=== PATIENT | female | born 1970 | race Caucasian/White ===

== ENCOUNTER 2024-12-17 17:46 | Emergency (ER) | payer OTHER ==
[~2024-12-17] VITALS: Ht 165.1 cm; Wt 111.1 kg
[~2024-12-17 17:46] MED LIST: FENOFIBRATE145 M1 PO; FLUOXETINE40 MG PO; FUROSEMIDE20 M1 PO; HALOPERIDOL5 MG PO; LEVOTHYROXINE125 MC1 PO; MELOXICAM15 MG PO; NEURONTIN300 MG PO; OMEPRAZOLE40 MG PO; PROZAC20 MG PO; SINGULAIR10 M1 PO; SOLIFENACIN SUC10 MG PO; VAZALORE81 MG PO; VITAMIN D350 MCG PO
[2024-12-17] MEDS ORDERED: SODIUM CHLORIDE 0.9% 1,000 ML IV ONE (17:50)
[2024-12-17] MEDS ORDERED: Metoclopramide Hydrochloride 10 MG/2 ML VIAL IV ONE (17:50)
[2024-12-17] MEDS ORDERED: diphenhydrAMINE hydrochloride 50 MG/ML VIAL IV ONE (17:50)
[2024-12-17 18:06] LABS: BASO # 0.0 10*3/uL (0.0-0.1); BASO % 0.2 % (0.0-1.0); EOS # 0.1 10*3/uL (0.0-0.4); EOS % 0.5 % (1.0-4.0); MEAN CELL VOLUME 92.4 fl (81.0-99.0); MEAN CORPUSCULAR HGB 29.3 pg (27.0-31.0); MEAN PLATELET VOLUME 11.1 fl (9.6-12.3); MONO # 1.3 10*3/uL (0.1-1.0); MONO % 7.4 % (3.0-9.0); NEUT # 13.9 10*3/uL (2.3-7.9); NEUT % 78.9 % (47.0-73.0); NUCLEATED RED BLOOD CELL 0.0 % (0.0-0.0); NUCLEATED RED BLOOD CELL 0.0 10*3/uL (0.0-0.0); PLATELET COUNT AUTOMATED 377 10*3/uL (130-400); RED CELL DISTRI WIDTH 13.9 % (0-14.5)
[2024-12-17 18:18] LABS: BILIRUBIN 1+ (Negative); BLOOD Negative (Negative); CLARITY Cloudy (Clear); COLOR Dark Yellow (Yellow); KETONE Trace (Negative); LEUKO ESTERASE Trace (Negative); NITRITE Negative (Negative); PH 6.5 (4.5-8.0); SPECIFIC GRAVITY 1.025 (1.001-1.030); UROBILINOGEN 1.0 E.U./dl (0.0-1.0)
[2024-12-17 18:26] LABS: BUN 8 mg/dl (9-23)
[2024-12-17 18:31] LABS: BACTERIA 2+; EPITHELIAL CELLS 16-20; MUCOUS 2+; RBC 0-2 rbc/hpf (0-2)
[2024-12-17] MEDS ORDERED: POTASSIUM CHLORIDE 20 MEQ TAB PO ONE (18:35)
[2024-12-17] MEDS ORDERED: Ondansetron4 MG PO (18:40)
[2024-12-17] MEDS ORDERED: POTASSIUM CHLO20 ME3 PO (18:40)
[2024-12-17] MEDS ORDERED: BENZONATATE100 M1 PO (18:40)
[2024-12-17] MEDS ORDERED: LEVOFLOXACIN750 M2 PO (18:40)
[2024-12-17] MEDS ORDERED: LEVOFLOXACIN 100 ML IV ONE (18:45)
== END 2024-12-17 19:54 | disposition home or self-care (01) ==
LOC: ED 17:46
PROVIDERS: Emergency Medicine
DX: J40 Bronchitis, not specified as acute or chronic (principal); R11.2 Nausea with vomiting, unspecified; R19.7 Diarrhea, unspecified; N39.0 Urinary tract infection, site not specified; E87.6 Hypokalemia; Z88.8 Allergy status to other drugs, medicaments and biological substances; Z91.018 Allergy to other foods

== ENCOUNTER 2024-12-26 21:24 | Inpatient (IN) | payer OTHER ==
[~2024-12-26] VITALS: Ht 165.1 cm; Wt 106.7 kg
[~2024-12-26 21:24] MED LIST changes: +BENZONATATE100 M1 PO; +LEVOFLOXACIN750 M2 PO; +Ondansetron4 MG PO; +POTASSIUM CHLO20 ME3 PO
[2024-12-26 21:36] VITALS: BP 134/90
[2024-12-26 22:02] LABS: BILIRUBIN 1+ (Negative); BLOOD Negative (Negative); CLARITY Cloudy (Clear); COLOR Dark Yellow (Yellow); KETONE 1+ (Negative); LEUKO ESTERASE 2+ (Negative); NITRITE Negative (Negative); PH 8.5 (4.5-8.0); SPECIFIC GRAVITY 1.025 (1.001-1.030); UROBILINOGEN 1.0 E.U./dl (0.0-1.0)
[2024-12-26 22:07] LABS: BACTERIA 1+; RBC 0-2 rbc/hpf (0-2); WBC 31-40 wbc/hpf (0-5)
[2024-12-26 22:08] LABS: BASO # 0.0 10*3/uL (0.0-0.1); BASO % 0.4 % (0.0-1.0); EOS # 0.2 10*3/uL (0.0-0.4); EOS % 2.0 % (1.0-4.0); MEAN CELL VOLUME 90.2 fl (81.0-99.0); MEAN CORPUSCULAR HGB 29.3 pg (27.0-31.0); MEAN PLATELET VOLUME 10.8 fl (9.6-12.3); MONO # 0.9 10*3/uL (0.1-1.0); MONO % 8.4 % (3.0-9.0); NEUT # 6.9 10*3/uL (2.3-7.9); NEUT % 61.5 % (47.0-73.0); NUCLEATED RED BLOOD CELL 0.0 % (0.0-0.0); NUCLEATED RED BLOOD CELL 0.0 10*3/uL (0.0-0.0); PLATELET COUNT AUTOMATED 490 10*3/uL (130-400); RED CELL DISTRI WIDTH 14.1 % (0-14.5)
[2024-12-26] MEDS ORDERED: Ondansetron Hydrochloride 4 MG TAB PO ONE (22:15)
[2024-12-26] MEDS ORDERED: SODIUM CHLORIDE 0.9% 1,000 ML IV ONE (22:15)
[2024-12-26 22:32] LABS: BUN 11.0 mg/dl (9-23); SGPT/ALT 26.0 U/L (5-49)
[2024-12-26] MEDS ORDERED: POTASSIUM CHLORIDE IN WATER 100 ML IV ONE (22:45)
[2024-12-27] MEDS ORDERED: SODIUM CHLORIDE 0.9% 1,000 ML IV ONE (01:05)
[2024-12-27] MEDS ORDERED: POTASSIUM CHLORIDE IN WATER 100 ML IV ONE (01:05)
[2024-12-27] MEDS ORDERED: ACETAMINOPHEN 650 MG SUPP R PRN (01:50)
[2024-12-27] MEDS ORDERED: ACETAMINOPHEN 325 MG TAB PO PRN (01:50)
[2024-12-27] MEDS ORDERED: Ondansetron Hydrochloride 4 MG/2 ML VIAL IV PRN (01:50)
[2024-12-27] MEDS ORDERED: BISACODYL 5 MG TAB PO PRN (01:50)
[2024-12-27] MEDS ORDERED: Acetaminophen/Hydrocodone 5 MG/325 MG TABLET PO PRN (01:50)
[2024-12-27] MEDS ORDERED: BISACODYL 10 MG SUPP R PRN (01:50)
[2024-12-27 02:40] VITALS: BP 128/74
[2024-12-27 03:15] VITALS: BP 122/78
[2024-12-27 06:32] LABS: ACT PARTIAL THROMBO TIME 25.4 SECONDS (20.0-32.1)
[2024-12-27 06:38] LABS: BASO # 0.0 10*3/uL (0.0-0.1); BASO % 0.4 % (0.0-1.0); EOS # 0.3 10*3/uL (0.0-0.4); EOS % 3.4 % (1.0-4.0); MEAN CORPUSCULAR HGB 28.8 pg (27.0-31.0); MEAN PLATELET VOLUME 11.2 fl (9.6-12.3); MONO # 0.7 10*3/uL (0.1-1.0); MONO % 7.6 % (3.0-9.0); NEUT # 6.0 10*3/uL (2.3-7.9); NEUT % 63.4 % (47.0-73.0); NUCLEATED RED BLOOD CELL 0.0 % (0.0-0.0); NUCLEATED RED BLOOD CELL 0.0 10*3/uL (0.0-0.0); PLATELET COUNT AUTOMATED 375 10*3/uL (130-400); RED CELL DISTRI WIDTH 14.2 % (0-14.5)
[2024-12-27] MEDS ORDERED: BENZONATATE 100 MG CAP PO PRN (06:45)
[2024-12-27 06:48] LABS: BUN 12 mg/dl (9-23); FREE T4 1.60 ng/dl (0.89-1.76); LDL CHOLESTEROL 47 mg/dL (9-159); SGPT/ALT 21 U/L (5-49)
[2024-12-27 07:07] LABS: MEAN CELL VOLUME 93.5 fl (81.0-99.0)
[2024-12-27 08:00] VITALS: BP 138/75
[2024-12-27 08:47] LABS: VITAMIN D, 25-HYDROXY 40.4 ng/mL (30-100)
[2024-12-27] MEDS ORDERED: GABAPENTIN 300 MG CAP PO SCH (10:00)
[2024-12-27] MEDS ORDERED: ASPIRIN ENTERIC COATED 81 MG TAB PO SCH (10:00)
[2024-12-27] MEDS ORDERED: HALOPERIDOL 5 MG TAB PO SCH (10:00)
[2024-12-27] MEDS ORDERED: FUROSEMIDE 20 MG TAB PO SCH (10:00)
[2024-12-27 12:00] VITALS: BP 150/80
[2024-12-27 16:00] VITALS: BP 131/67
[2024-12-27 20:00] VITALS: BP 120/63
[2024-12-27] MEDS ORDERED: FENOFIBRATE 145 MG TAB PO SCH (21:00)
[2024-12-27] MEDS ORDERED: VANCOMYCIN HCL 125 MG CAPSULE PO SCH (22:30)
[2024-12-28] VITALS: BP 108/61
[2024-12-28] MEDS ORDERED: OMEPRAZOLE 20 MG CAP PO SCH (06:00)
[2024-12-28 06:13] LABS: BASO # 0.1 10*3/uL (0.0-0.1); BASO % 0.6 % (0.0-1.0); EOS # 0.4 10*3/uL (0.0-0.4); EOS % 5.2 % (1.0-4.0); MEAN CELL VOLUME 94.8 fl (81.0-99.0); MEAN CORPUSCULAR HGB 28.8 pg (27.0-31.0); MEAN PLATELET VOLUME 11.3 fl (9.6-12.3); MONO # 0.6 10*3/uL (0.1-1.0); MONO % 7.9 % (3.0-9.0); NEUT # 4.1 10*3/uL (2.3-7.9); NEUT % 52.0 % (47.0-73.0); NUCLEATED RED BLOOD CELL 0.0 % (0.0-0.0); NUCLEATED RED BLOOD CELL 0.0 10*3/uL (0.0-0.0); PLATELET COUNT AUTOMATED 332 10*3/uL (130-400); RED CELL DISTRI WIDTH 14.6 % (0-14.5)
[2024-12-28 06:14] LABS: BUN 10 mg/dl (9-23)
[2024-12-28 08:00] VITALS: BP 156/84
[2024-12-28] MEDS ORDERED: POTASSIUM CHLORIDE 20 MEQ TAB PO ONE (09:05)
[2024-12-28] MEDS ORDERED: SODIUM CHLORIDE 0.9% 1,000 ML IV ONE (09:20)
[2024-12-28] MEDS ORDERED: Lactobacillus Acidophilus/LA 1 TAB TAB PO SCH (10:00)
[2024-12-28 12:00] VITALS: BP 133/72
[2024-12-28 16:00] VITALS: BP 163/78
[2024-12-28 20:00] VITALS: BP 135/89
[2024-12-29] VITALS: BP 137/82
[2024-12-29 06:38] LABS: BASO # 0.1 10*3/uL (0.0-0.1); BASO % 0.6 % (0.0-1.0); EOS # 0.3 10*3/uL (0.0-0.4); EOS % 4.2 % (1.0-4.0); MEAN CELL VOLUME 95.1 fl (81.0-99.0); MEAN CORPUSCULAR HGB 28.9 pg (27.0-31.0); MEAN PLATELET VOLUME 11.3 fl (9.6-12.3); MONO # 0.6 10*3/uL (0.1-1.0); MONO % 7.0 % (3.0-9.0); NEUT # 4.6 10*3/uL (2.3-7.9); NEUT % 56.3 % (47.0-73.0); NUCLEATED RED BLOOD CELL 0.0 % (0.0-0.0); NUCLEATED RED BLOOD CELL 0.0 10*3/uL (0.0-0.0); PLATELET COUNT AUTOMATED 324 10*3/uL (130-400); RED CELL DISTRI WIDTH 14.5 % (0-14.5)
[2024-12-29 07:02] LABS: BUN 9 mg/dl (9-23)
[2024-12-29 08:00] VITALS: BP 133/70
[2024-12-29] MEDS ORDERED: VANCOMYCIN HCL125 MG PO ×2 (10:23→18:55)
[2024-12-29] MEDS ORDERED: LACTINEX 0.2 MG1 TAB PO ×2 (10:23→18:55)
[2024-12-29 12:00] VITALS: BP 155/79
== END 2024-12-29 17:46 | disposition home or self-care (01) | DRG 371 ==
LOC: ED 21:24 → 5E 12-27 01:24 → EDHOLD 12-27 01:24 → 5E 12-27 02:57
PROVIDERS: Nurse Practitioner Family; Student in an Organized Health Care Education/Training Program; ADMIT Internal Medicine; ATTEND Internal Medicine
DX: A04.72 Enterocolitis due to Clostridium difficile, not specified as recurrent (principal); N17.0 Acute kidney failure with tubular necrosis; N39.0 Urinary tract infection, site not specified; E87.6 Hypokalemia; N18.31 Chronic kidney disease, stage 3a; F25.1 Schizoaffective disorder, depressive type; D72.829 Elevated white blood cell count, unspecified; E27.9 Disorder of adrenal gland, unspecified; I12.9 Hypertensive chronic kidney disease with stage 1 through stage 4 chronic kidney disease, or unspecified chronic kidney disease; E78.00 Pure hypercholesterolemia, unspecified; R73.9 Hyperglycemia, unspecified; Z91.018 Allergy to other foods; Z91.048 Other nonmedicinal substance allergy status; Z91.09 Other allergy status, other than to drugs and biological substances; Z79.899 Other long term (current) drug therapy; Z79.82 Long term (current) use of aspirin; Z79.2 Long term (current) use of antibiotics; Z90.49 Acquired absence of other specified parts of digestive tract; Z90.710 Acquired absence of both cervix and uterus; Z82.49 Family history of ischemic heart disease and other diseases of the circulatory system; Z82.3 Family history of stroke; Z81.8 Family history of other mental and behavioral disorders